=== PATIENT | male | born 1965 | race Caucasian/White ===

== ENCOUNTER 2017-04-19 22:10 | Emergency (ER) | payer OTHER ==
[~2017-04-19] VITALS: Ht 195.6 cm; Wt 125.0 kg
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
[2017-04-20 06:17] VITALS: BP 143/65; PULSE 76; RESP 18; O2SAT 99
[2017-04-20] MEDS ORDERED: LISI2.5T3 PO (11:49)
[2017-04-20] MEDS ORDERED: METF1000 PO (11:54)
[2017-04-20] MEDS ORDERED: ESCI5TAB PO (11:55)
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
--- NOTE | 2017-04-20 13:27 | PD ---
Physical Exam Time Seen by Provider: 13:10 Data Data Last Documented VS Vital Signs Date Time Temp Pulse Resp B/P (MAP) Pulse Ox O2 Delivery O2 Flow Rate FiO2 04/20/17 06:17 76 18 143/65 (91) 99 Room Air Orders Orders Psych Screen (04/20/17 04:06) Diet Regular Basic (04/20/17 Breakfast) Diet Regular Basic (04/20/17 Lunch) Diet Regular Basic (04/20/17 Dinner) MDM Medical Record Reviewed: Yes Supervised Visit with SHIRLEY: No Narrative Course Please see previous provider's notes in regards to the circumstances surrounding this patient's visit. I was asked to discharge this patient after the psychiatrist, Dr. Martini, lifted his Peguero act. He was placed under Peguero act yesterday evening after making some statements to his that were interpreted as suicidal intent. The patient patient feels that the state and was misinterpreted and he has no desire to hurt himself or anyone else. He has no medical complaints at this time. He is currently on citalopram 10 mg prescribed by his previous primary care physician in [place]. He now lives here and plans on following up locally but does not currently have any follow- up plans. [facility] will be [facility] to [facility]. His is in the lobby to pick him up and she feels safe taking him home according to the nurse, Dr. Mckeon notes. He understands that he can return at any time for any emergent condition, suicidal thoughts. Diagnosis Primary Impression: Adjustment disorder with mixed disturbance of emotions and conduct Referrals: [facility] Med/Other Pt SpecificInfo: No Change to Meds Disposition: 01 DISCHARGE HOME Condition: Stable Rodger Meeks Apr 20, 2017 13:27
== END 2017-04-20 14:25 | disposition home or self-care (01) ==
LOC: NEPJ 22:10
DX: F43.25 Adjustment disorder with mixed disturbance of emotions and conduct (principal); R45.851 Suicidal ideations; I10 Essential (primary) hypertension
CPT/HCPCS: 99283